=== PATIENT | female | born 1945 | race Caucasian/White ===

== ENCOUNTER 2016-09-02 13:48 | Emergency (ER) | payer MEDICARE, BC ==
[2016-09-02] MEDS ORDERED: Sodium Chloride 0.9% 10 ML Syringe FLUSH PRN (14:39)
[2016-09-02] MEDS ORDERED: Sodium Chloride 0.9% 1,000 ML IV STA (14:39)
[2016-09-02] MEDS ORDERED: HYDROmorphone 1 MG/ML Syringe IVPUSH ONE (14:43)
[2016-09-02] MEDS ORDERED: Ondansetron 4 MG/2 ML SDV IVPUSH ONE (14:43)
--- NOTE | 2016-09-02 14:44 | EDM.PDOC ---
ED HPI GENERAL MEDICAL PROBLEM - General Chief Complaint: Chest Pain Stated Complaint: HEART CHEST PAIN Time Seen by Provider: 09/02/16 14:33 Source of Information: Reports: Patient, RN Notes Reviewed History Limitations: Reports: No Limitations - History of Present Illness INITIAL COMMENTS - FREE TEXT/NARRATIVE: 71-year-old female presents emergency department day complaint of left upper quadrant abdominal pain, she has been ill for the last 3 days describes the pain as waxing and waning very sharp and intense relax and its intermittent nature, she denies any other symptoms fever shortness of breath she still passing gas and no troubles with bowel movements no nausea vomiting history of colonic perforation several years ago secondary to diverticular below left breast Pain Score (Numeric/FACES): 7 - Related Data Allergies Allergy/AdvReac Type Severity Reaction Status Date / Time No Known Allergies Allergy Verified 09/02/16 13:59 Home Meds: Home Meds Methotrexate Sodium [Methotrexate] 6 tab PO WEEKLY 09/02/16 [History] Simvastatin [Simvastatin] 20 mg PO DAILY 09/02/16 [History] Past Medical History Cardiovascular History: Reports: High Cholesterol Musculoskeletal History: Reports: RA Immunologic History: Reports: Immunosuppression - Past Surgical History HEENT Surgical History: Reports: Cataract Surgery, Detached Retina, Eye Surgery Cardiovascular Surgical History: Reports: None GI Surgical History: Reports: Other (See Below) Other GI Surgeries/Procedures: colon surgery Social & Family History - Tobacco Use Smoking Status *Q: Never Smoker - Recreational Drug Use Recreational Drug Use: No ED ROS GENERAL - Review of Systems Review Of Systems: See Below Constitutional: Denies: Fever, Chills HEENT: Reports: No Symptoms Respiratory: Reports: No Symptoms Cardiovascular: Reports: No Symptoms GI/Abdominal: Reports: Abdominal Pain, Flatus. Denies: Nausea, Vomiting : Reports: No Symptoms Musculoskeletal: Reports: No Symptoms Skin: Reports: No Symptoms ED EXAM, GI/ABD - Physical Exam Exam: See Below Text/Narrative:: General: Female, in mild discomfort secondary to pain, alert and oriented x3 HEENT: head is atraumatic normocephalic, eyes pupils equal round reactive to light, sclera clear no conjunctivitis appreciated. Ears tympanic membranes clear and leonardo landmarks and light reflex are present bilaterally canals are clear. Nose no septal deviation, nares are clear, no blood present. Mouth mucosa is moist and pink no erythema or exudate noted in soft palate, tongue is midline uvula is midline, dentition is intact. Neck: Supple no thyromegaly no tracheal deviation. Nodes: Cervical nodes subclavicular nodes nontender no palpable lymphadenopathy noted. Lungs: clear to auscultation bilaterally with symmetrical respirations, no adventitious noise appreciated. CV: Regular rate and rhythm S1 and S2 appreciated no murmurs rubs or gallops noted. Abdomen: Soft, tender to palpation left upper quadrant port, no palpable masses or organomegaly appreciated, no distention no guarding bowel sounds are present , and is Neuro: Cranial nerves II through XII grossly intact Skin: Warm and dry, intact Extremities: No lower extremity edema appreciated. Course - Vital Signs Last Recorded V/S: Last Vital Signs Temp 99.0 F 09/02/16 13:58 Pulse 83 09/02/16 15:54 Resp 16 09/02/16 16:46 BP 111/64 09/02/16 16:46 Pulse Ox 96 09/02/16 16:46 - Orders/Labs/Meds Orders: Active Orders 24 hr Category Date Time Status Peripheral IV Care [RC] . DIRECTED Care 09/02/16 14:41 Active Abdomen Pelvis w Cont [CT] Urgent Exams 09/02/16 14:39 Taken CULTURE URINE [RM] Urgent Lab 09/02/16 17:23 Uncollected Sodium Chloride 0.9% [Saline Flush] Med 09/02/16 14:39 Active 10 ml FLUSH ASDIRECTED PRN Peripheral IV Insertion Adult [OM.PC] Urgent Oth 09/02/16 14:39 Ordered Medication Orders Sodium Chloride (Saline Flush) 10 ml FLUSH ASDIRECTED PRN PRN Reason: Keep Vein Open Last Admin: 09/02/16 15:17 Dose: 10 ml Labs: Laboratory Tests 09/02/16 09/02/16 09/02/16 Range/Units 14:53 14:53 14:53 WBC 14.8 H (4.5-11.0) K/uL RBC 3.79 (3.30-5.50) M/uL Hgb 13.3 (12.0-15.0) g/dL Hct 38.5 (36.0-48.0) % MCV 102 H (80-98) fL MCH 35 H (27-31) pg MCHC 35 (32-36) % Plt Count 197 (150-400) K/uL Neut % (Auto) 78 H (36-66) % Lymph % (Auto) 7 L (24-44) % Nash % (Auto) 14 H (2-6) % Eos % (Auto) 0 L (2-4) % Baso % (Auto) 0 (0-1) % Sodium 139 L (140-148) mmol/L Potassium 4.2 (3.6-5.2) mmol/L Chloride 104 (100-108) mmol/L Carbon Dioxide 28 (21-32) mmol/L Anion Gap 11.2 (5.0-14.0) mmol/L BUN 15 (7-18) mg/dL Creatinine 0.9 (0.6-1.0) mg/dL Est Cr Clr Drug Dosing 48.11 mL/min Estimated GFR (MDRD) > 60 (>60) Glucose 114 H (74-106) mg/dL Lactic Acid 1.3 (0.4-2.0) mmol/L Calcium 9.4 (8.5-10.1) mg/dL Total Bilirubin 0.9 (0.2-1.0) mg/dL AST 15 (15-37) U/L ALT 15 (12-78) U/L Alkaline Phosphatase 57 (46-116) U/L Troponin I < 0.017 (0.000-0.056) ng/mL Total Protein 7.1 (6.4-8.2) g/dL Albumin 3.0 L (3.4-5.0) g/dL Globulin 4.1 H (2.3-3.5) g/dL Albumin/Globulin Ratio 0.7 L (1.2-2.2) Lipase 122 (73-393) U/L Urine Color Urine Appearance Urine pH (4.5-8.0) Ur Specific [place] (1.008-1.030) Urine Protein (NEGATIVE) mg/dL Urine Glucose (UA) (NEGATIVE) mg/dL Urine Ketones (NEGATIVE) mg/dL Urine Occult Blood (NEGATIVE) Urine Nitrite (NEGATIVE) Urine Bilirubin (NEGATIVE) Urine Urobilinogen (NORMAL) mg/dL Ur Leukocyte Esterase (NEGATIVE) Urine RBC (0-5) Urine WBC (0-5) Ur Epithelial Cells Amorphous Sediment Urine Bacteria Urine Mucus 09/02/16 Range/Units 16:58 WBC (4.5-11.0) K/uL RBC (3.30-5.50) M/uL Hgb (12.0-15.0) g/dL Hct (36.0-48.0) % MCV (80-98) fL MCH (27-31) pg MCHC (32-36) % Plt Count (150-400) K/uL Neut % (Auto) (36-66) % Lymph % (Auto) (24-44) % Nash % (Auto) (2-6) % Eos % (Auto) (2-4) % Baso % (Auto) (0-1) % Sodium (140-148) mmol/L Potassium (3.6-5.2) mmol/L Chloride (100-108) mmol/L Carbon Dioxide (21-32) mmol/L Anion Gap (5.0-14.0) mmol/L BUN (7-18) mg/dL Creatinine (0.6-1.0) mg/dL Est Cr Clr Drug Dosing mL/min Estimated GFR (MDRD) (>60) Glucose (74-106) mg/dL Lactic Acid (0.4-2.0) mmol/L Calcium (8.5-10.1) mg/dL Total Bilirubin (0.2-1.0) mg/dL AST (15-37) U/L ALT (12-78) U/L Alkaline Phosphatase (46-116) U/L Troponin I (0.000-0.056) ng/mL Total Protein (6.4-8.2) g/dL Albumin (3.4-5.0) g/dL Globulin (2.3-3.5) g/dL Albumin/Globulin Ratio (1.2-2.2) Lipase (73-393) U/L Urine Color Yellow Urine Appearance Clear Urine pH 5.0 (4.5-8.0) Ur Specific [place] 1.010 (1.008-1.030) Urine Protein Trace (NEGATIVE) mg/dL Urine Glucose (UA) Normal (NEGATIVE) mg/dL Urine Ketones Negative (NEGATIVE) mg/dL Urine Occult Blood Large (NEGATIVE) Urine Nitrite Negative (NEGATIVE) Urine Bilirubin Negative (NEGATIVE) Urine Urobilinogen 1 (NORMAL) mg/dL Ur Leukocyte Esterase Small (NEGATIVE) Urine RBC 5-10 H (0-5) Urine WBC 0-5 (0-5) Ur Epithelial Cells Few Amorphous Sediment Few Urine Bacteria Rare Urine Mucus Few Meds: Medications Generic Name Dose Route Start Last Admin Trade Name Freq PRN Reason Stop Dose Admin Sodium Chloride 10 ml 09/02/16 14:39 09/02/16 15:17 Saline Flush FLUSH 10 ml ASDIRECTED PRN Administration Keep Vein Open Discontinued Medications Generic Name Dose Route Start Last Admin Trade Name Freq PRN Reason Stop Dose Admin Hydromorphone HCl 1 mg 09/02/16 14:43 09/02/16 15:15 Dilaudid IVPUSH 09/02/16 14:44 1 mg ONETIME ONE Administration Sodium Chloride 1,000 mls @ 500 mls/hr 09/02/16 14:39 09/02/16 15:12 Normal Saline IV 09/02/16 16:38 500 mls/hr .BOLUS STA Administration Sodium Chloride 70 mls @ 3 mls/sec 09/02/16 15:27 09/02/16 15:39 Normal Saline IV 09/02/16 15:28 3 mls/sec ASDIRECTED STA Administration Iopamidol 81 ml 09/02/16 15:26 09/02/16 15:38 Isovue-300 (61%) IV 09/02/16 15:27 100 ml . DIRECTED STA Administration Ondansetron HCl 4 mg 09/02/16 14:43 09/02/16 15:12 Zofran IVPUSH 09/02/16 14:44 4 mg ONETIME ONE Administration Departure - Departure Time of Disposition: 17:25 Disposition: Home, Self-Care 01 Condition: Good Clinical Impression: Left upper quadrant pain - Discharge Information Forms: ED Department Discharge Additional Instructions: use hydrocodone as needed for pain control, recommend trying MiraLAX for constipation, Please followup with your primary care provider in 3-5 days if not better, please call return to the emergency department with worsening of symptoms. - My Orders Last 24 Hours: My Active Orders 09/02/16 14:39 Abdomen Pelvis w Cont [CT] Urgent Sodium Chloride 0.9% [Saline Flush] 10 ml FLUSH ASDIRECTED PRN Peripheral IV Insertion Adult [OM.PC] Urgent 09/02/16 14:41 Peripheral IV Care [RC] . DIRECTED 09/02/16 17:23 CULTURE URINE [RM] Urgent - Assessment/Plan Last 24 Hours: My Active Orders 09/02/16 14:39 Abdomen Pelvis w Cont [CT] Urgent Sodium Chloride 0.9% [Saline Flush] 10 ml FLUSH ASDIRECTED PRN Peripheral IV Insertion Adult [OM.PC] Urgent 09/02/16 14:41 Peripheral IV Care [RC] . DIRECTED 09/02/16 17:23 CULTURE URINE [RM] Urgent Plan: Assessment Acuity = acute Site and laterality = left upper quadrant pain Etiology = unclear etiology Manifestations = none Location of injury = home Lab values = WBC elevated 14.8 consistent leukocytosis albumin low at 3.0 consistent hypoalbuminemia, troponin was negative urinalysis reveals 5-10 [address] hemat[address] scan shows trace pleural effusion left consistent with atelectasis versus scarring, minimal constipation pattern: Plan I did review lab work CT scan results with her elected to do pain control and MiraLAX follow-up primary care next week: #10 hydrocodone provided Patient was in agreement with the plan all questions were answered, they were instructed to return to the emergency department or call for worsening symptoms. This note was dictated using [employer] voice recognition software please call with any questions.
[2016-09-02] MEDS ORDERED: Iopamidol 612 MG/ML 100 ML Bottle IV STA (15:26)
[2016-09-02 16:47] VITALS: BP 111/64
== END 2016-09-02 17:48 | disposition home or self-care (01) ==
LOC: JP.ED 13:48
DX: R10.12 Left upper quadrant pain (principal); E78.00 Pure hypercholesterolemia, unspecified; M06.9 Rheumatoid arthritis, unspecified; Z98.49 Cataract extraction status, unspecified eye; Z79.899 Other long term (current) drug therapy
CPT/HCPCS: 36415; 74177; 80053; 81001; 83605; 83690; 84484; 85025; 96374; 96375; 99284; J1170; J2405; J7030; J7040; J7050; Q9967; 93005; 93010